=== PATIENT | male | born 1965 | race Caucasian/White ===

== ENCOUNTER 2017-10-04 20:10 | Emergency (ER) | payer OTHER ==
[~2017-10-04] VITALS: Ht 182.9 cm; Wt 115.7 kg
[2017-10-04 20:26] VITALS: BP_SYST 140
[2017-10-04] MEDS ORDERED: HYDROcodone/ACETAMIN 7.5-325 MG TAB PO ONE (20:30)
[2017-10-04] MEDS ORDERED: LIDOCAINE 1% 10 MG/ML, 20 ML MDV INJ ONE (20:30)
[2017-10-04] MEDS ORDERED: BACITRACIN 1 GM OINT TP ONE (20:30)
[2017-10-04] MEDS ORDERED: SODIUM BICARBONATE 8.4% VIAL 50 MEQ/50 ML VIAL INJ ONE (20:30)
[2017-10-04] MEDS ORDERED: DIPH-TET-PERTUS Vaccine 0.5 ML VIAL (ADACEL) I.M. ONE (20:45)
[2017-10-04 21:00] VITALS: BP_SYST 140
[2017-10-04] MEDS ORDERED: CEPHALEXIN 500 MG CAPSULE PO ONE (21:00)
[2017-10-04] MEDS ORDERED: SULFAMETHOXAZOLE/TRIMETHOPR DS 1 TABLET PO ONE (21:00)
== END 2017-10-04 21:00 | disposition home or self-care (01) ==
LOC: SED 20:10
DX: L02.511 Cutaneous abscess of right hand (principal); R03.0 Elevated blood-pressure reading, without diagnosis of hypertension; Z90.89 Acquired absence of other organs; Z90.49 Acquired absence of other specified parts of digestive tract
CPT/HCPCS: 26010; 90471; 90715; 99284; J2001